=== PATIENT | female | born 1970 | race Caucasian/White ===

== ENCOUNTER → 2016-04-12 | Outpatient (CLI) | payer OTHER ==
[2016-04-12 09:05] LABS: AUTOMATED NEUTROPHIL # 3.1 TH/MM3 (1.8-7.7); BASOPHIL % 0.7 % (0.0-2.0); EOSINOPHIL # 0.2 TH/MM3 (0-0.4); EOSINOPHIL % 3.4 % (0.0-4.0); HEMO FLAGS DIFF FINAL; LYMPH % 35.8 % (9.0-44.0); MEAN CELL VOLUME 87.5 FL (80.0-100.0); MEAN CORPUSCULAR HEMOGLOBIN 28.4 PG (27.0-34.0); MEAN CORPUSCULAR HGB CONC 32.5 % (32.0-36.0); MONO % 7.5 % (0.0-8.0); NEUT % 52.6 % (16.0-70.0); PLATELET COUNT 296 TH/MM3 (150-450); RED BLOOD COUNT 4.92 MIL/MM3 (4.00-5.30); WHITE BLOOD COUNT 5.7 TH/MM3 (4.0-11.0)
[2016-04-12 09:41] LABS: ALKALINE PHOSPHATASE 32 U/L (45-117); ALT (GPT) 37 U/L (10-53); ANION GAP 9 MEQ/L (5-15); AST (GOT) 25 U/L (15-37); BICARBONATE 26.6 MEQ/L (21.0-32.0); BLOOD UREA NITROGEN 15 MG/DL (7-18); CHLORIDE 106 MEQ/L (98-107); GLOMERULAR FILTRATION RATE 63 ML/MIN (>89); GLUCOSE,FASTING 88 MG/DL (74-99); SODIUM (NA) 142 MEQ/L (136-145); TOTAL BILIRUBIN ADULT 0.4 MG/DL (0.2-1.0)
== END ==
LOC: OLAB 07:32
DX: Z79.899 Other long term (current) drug therapy (principal)
CPT/HCPCS: 80053; 85025

== ENCOUNTER → 2016-07-10 | Outpatient (CLI) | payer OTHER ==
[2016-07-10 08:58] LABS: AUTOMATED NEUTROPHIL # 3.3 TH/MM3 (1.8-7.7); BASOPHIL % 0.8 % (0.0-2.0); EOSINOPHIL # 0.2 TH/MM3 (0-0.4); HEMO FLAGS DIFF FINAL; LYMPH % 27.9 % (9.0-44.0); LYMPHOCYTE # 1.6 TH/MM3 (1.0-4.8); MEAN CELL VOLUME 87.4 FL (80.0-100.0); MEAN CORPUSCULAR HEMOGLOBIN 28.1 PG (27.0-34.0); MEAN CORPUSCULAR HGB CONC 32.2 % (32.0-36.0); MONO % 9.4 % (0.0-8.0); NEUT % 58.9 % (16.0-70.0); PLATELET COUNT 290 TH/MM3 (150-450); RED BLOOD COUNT 4.81 MIL/MM3 (4.00-5.30); RED CELL DISTRIBUTION WIDTH 12.9 % (11.6-17.2); WHITE BLOOD COUNT 5.6 TH/MM3 (4.0-11.0)
[2016-07-10 13:08] LABS: BLOOD UREA NITROGEN 12 MG/DL (7-18); GLOMERULAR FILTRATION RATE 72 ML/MIN (>89)
[2016-07-10 13:09] LABS: ANION GAP 7 MEQ/L (5-15); AST (GOT) 30 U/L (15-37); BICARBONATE 25.6 MEQ/L (21.0-32.0); CHLORIDE 105 MEQ/L (98-107); SODIUM (NA) 138 MEQ/L (136-145)
[2016-07-10 13:11] LABS: ALKALINE PHOSPHATASE 34 U/L (45-117); ALT (GPT) 36 U/L (10-53); HDL CHOLESTEROL 32.4 MG/DL (40.0-60.0); LDL CHOLESTEROL 230 MG/DL (0-99); TOTAL BILIRUBIN ADULT 0.3 MG/DL (0.2-1.0)
== END ==
LOC: OLAB 07:48
PROVIDERS: ATTEND Internal Medicine
DX: E78.00 Pure hypercholesterolemia, unspecified (principal); Z79.899 Other long term (current) drug therapy
CPT/HCPCS: 80053; 80061; 85025

== ENCOUNTER → 2016-08-12 | Outpatient (CLI) | payer OTHER ==
[2016-08-12 09:09] LABS: AUTOMATED NEUTROPHIL # 4.4 TH/MM3 (1.8-7.7); BASOPHIL % 0.4 % (0.0-2.0); EOSINOPHIL # 0.2 TH/MM3 (0-0.4); EOSINOPHIL % 2.9 % (0.0-4.0); HEMATOCRIT 41.2 % (35.0-46.0); HEMO FLAGS DIFF FINAL; MEAN CELL VOLUME 87.4 FL (80.0-100.0); MEAN CORPUSCULAR HEMOGLOBIN 29.1 PG (27.0-34.0); MEAN CORPUSCULAR HGB CONC 33.2 % (32.0-36.0); MONO % 7.1 % (0.0-8.0); NEUT % 61.6 % (16.0-70.0); PLATELET COUNT 324 TH/MM3 (150-450); RED BLOOD COUNT 4.71 MIL/MM3 (4.00-5.30); RED CELL DISTRIBUTION WIDTH 12.7 % (11.6-17.2); WHITE BLOOD COUNT 7.1 TH/MM3 (4.0-11.0)
[2016-08-12 09:37] LABS: ANION GAP 10 MEQ/L (5-15); BICARBONATE 24.4 MEQ/L (21.0-32.0); BLOOD UREA NITROGEN 10 MG/DL (7-18); CHLORIDE 106 MEQ/L (98-107); GLOMERULAR FILTRATION RATE 85 ML/MIN (>89); GLUCOSE,FASTING 83 MG/DL (74-99); SODIUM (NA) 140 MEQ/L (136-145)
[2016-08-12 09:39] LABS: AST (GOT) 20 U/L (15-37)
[2016-08-12 09:48] LABS: ALKALINE PHOSPHATASE 34 U/L (45-117); ALT (GPT) 29 U/L (10-53); TOTAL BILIRUBIN ADULT 0.3 MG/DL (0.2-1.0)
[2016-08-14 14:47] LABS: MITOGEN MINUS NIL RESULT >10.00 IU/mL (()); NIL RESULT 0.02 IU/mL (()); QUANTIFERON TB GOLD RESULT Negative (Negative)
== END ==
LOC: OLAB 07:41
DX: Z79.899 Other long term (current) drug therapy (principal)
CPT/HCPCS: 80053; 85025; 86480; 86704; 86803

== ENCOUNTER → 2017-05-22 | Outpatient (CLI) | payer OTHER ==
[2017-05-22 08:55] LABS: AUTOMATED NEUTROPHIL # 2.5 TH/MM3 (1.8-7.7); BASOPHIL % 0.5 % (0.0-2.0); EOSINOPHIL # 0.2 TH/MM3 (0-0.4); EOSINOPHIL % 4.6 % (0.0-4.0); HEMATOCRIT 41.3 % (35.0-46.0); LYMPH % 38.9 % (9.0-44.0); MEAN CELL VOLUME 86.8 FL (80.0-100.0); MEAN CORPUSCULAR HEMOGLOBIN 29.4 PG (27.0-34.0); MEAN CORPUSCULAR HGB CONC 33.8 % (32.0-36.0); MEAN PLATELET VOLUME 8.3 FL (7.0-11.0); MONO % 8.8 % (0.0-8.0); MONOCYTE # 0.5 TH/MM3 (0-0.9); NEUT % 47.2 % (16.0-70.0); PLATELET COUNT 285 TH/MM3 (150-450); RED BLOOD COUNT 4.76 MIL/MM3 (4.00-5.30); RED CELL DISTRIBUTION WIDTH 12.5 % (11.6-17.2); WHITE BLOOD COUNT 5.2 TH/MM3 (4.0-11.0)
[2017-05-22 10:47] LABS: AST (GOT) 24 U/L (15-37); BICARBONATE 25.8 MEQ/L (21.0-32.0); BLOOD UREA NITROGEN 12 MG/DL (7-18); CALCIUM 8.7 MG/DL (8.5-10.1); CHLORIDE 106 MEQ/L (98-107); CREATININE 0.88 MG/DL (0.50-1.00); GLOMERULAR FILTRATION RATE 69 ML/MIN (>89); GLUCOSE,FASTING 83 MG/DL (74-99); SODIUM (NA) 140 MEQ/L (136-145)
[2017-05-22 10:48] LABS: CHOLESTEROL 170 MG/DL (120-200)
[2017-05-22 10:58] LABS: ALKALINE PHOSPHATASE 32 U/L (45-117); ALT (GPT) 36 U/L (10-53); CHOLESTEROL/ HDL RATIO 4.58 RATIO; HDL CHOLESTEROL 37.1 MG/DL (40.0-60.0); LDL CHOLESTEROL 109 MG/DL (0-99); TOTAL BILIRUBIN ADULT 0.4 MG/DL (0.2-1.0); TOTAL PROTEIN 7.1 GM/DL (6.4-8.2); TRIGLYCERIDES 121 MG/DL (42-150)
== END ==
LOC: OLAB 07:31
DX: E78.00 Pure hypercholesterolemia, unspecified (principal)
CPT/HCPCS: 36415; 80053; 80061; 84443; 85025